=== PATIENT | male | born 1940 | race Caucasian/White ===

== ENCOUNTER → 2023-10-07 09:13 | Outpatient (REF) | payer MEDICARE, OTHER, SELFPAY | LOC: SDSPAT 09:13 | PROVIDERS: ATTENDING PHYSICIAN Surgery; FAMILY PHYSICIAN Internal Medicine; REFERRING PHYSICIAN Internal Medicine Cardiovascular Disease | DX: K40.90 Unilateral inguinal hernia, without obstruction or gangrene, not specified as recurrent (principal) | CPT/HCPCS: 36415; 93005 ==

== ENCOUNTER 2023-10-14 06:19 | Day surgery (SDC) | payer MEDICARE, OTHER, SELFPAY ==
[2023-10-07 09:33] VITALS: BMI 20.9
[2023-10-14] VITALS (10 sets, daily range): BP systolic 121–169; BP diastolic 64–96; BMI 20.9
[2023-10-14] MEDS: TYLENOL 1000 MG PO (06:39)
[2023-10-14] MEDS: NORMOSOL-R 1000 IV (06:40)
--- NOTE | 2023-10-14 08:57 | OR.RPT ---
Operative Report
Operative Report
Primary Surgeon: Irene
Assisting: Rebeca VARGHESE
Pre-op Diagnosis: Left inguinal hernia
Post-op Diagnosis: Same
Procedure Performed: Open repair left inguinal hernia (Deangelo)
Anesthesia Type: MAC local
Specimen / Cultures: None
Estimated Blood Loss: 5cc
Complications: None immediate
Operative Findings: Direct defect plicated with vicryl suture; 3x6 bard mesh trimmed and secured with 2-0 prolene interrupted.
Date of Surgery: 10/14/23
Indications: This 82M developed a symptomatic left inguinal hernia and open repair was elected by the patient.
PROCEDURE: After informed consent was obtained, the patient was brought to the operative suite and placed supine on the operating table and the correct site of surgery was verified. The patient was sedated, prepped and draped in the usual sterile
manner and an adequate local anesthetic was administered using a combination of Marcaine/lidocaine.
An incision was made parallel to the inguinal ligament about 3cm superior to it. The incision was carried down to the external oblique aponeurosis with electrocautery. A ashley was made in the external oblique aponeurosis parallel with its fibers and
a metzenbaum jl was used to carefully divide the external oblique taking care to avoid injuring the ilioinguinal nerve. The spermatic cord was identified and encircled with a karoline drain. The cord structures were dientified, no cord lipoma nor
hernia sac was identified. The inguinal floor was inspected and a defect was found. The kayla was plicated with shallow bites of 2-0 vicryl suture. A 3'x6' bard mesh was trimmed to size and secured to the right pubic tubercle with 2-0 prolene suture.
The mesh was then secured at the lateral edge to the shelving edge of the inguinal ligament with interrupted 2-0 prolene sutures and the medial edge of the mesh was secured to the conjoint tendon in similar fashion. The mesh tails were crossed over
the cord and a hemostat was used to ensure adequate space for the cord. The tails were secured to each other with 2-0 prolene suture. The external oblique aponeurosis was reapproximated with running 3-0 vicryl suture taking care not to injure the
ilioinguinal nerve. Deep dermal interrupted 3-0 vicryl sutures were used to close the skin and a 4-0 running subcuticular monocryl suture was used to complete the closure. Topical skin glue was then applied. Both testes were checked and verified to
be in the scrotum. All surgical counts were reported as correct.
The patient tolerated the procedure well and was taken to the PACU in stable condition.
The assistance of Rebeca VARGHESE was required due to the complexity of the procedure. During the procedure he assisted with retraction, resection, and closure of the wound.
== END 2023-10-14 11:25 | disposition home or self-care (01) ==
LOC: SDS 06:19
PROVIDERS: ATTENDING PHYSICIAN Surgery; FAMILY PHYSICIAN Internal Medicine
DX: K40.90 Unilateral inguinal hernia, without obstruction or gangrene, not specified as recurrent (principal)
CPT/HCPCS: 49505; C1781